=== PATIENT | male | born 1960 | race Two or more races ===

== ENCOUNTER 2016-08-10 07:30 | Emergency (ER) | payer OTHER ==
[~2016-08-10] VITALS: Ht 172.7 cm; Wt 90.7 kg
[2016-08-10] MEDS ORDERED: SODIUM CHLORIDE 0.9% 1,000 ML IV ONE (07:40)
[2016-08-10 08:02] LABS: Basophils # (auto) 0 uL; Basophils % (auto) 0.2 % (0.0-2.0); Eosinophils # (auto) 0.1 uL; Eosinophils % (auto) 1.3 % (0.0-7.0); Hematocrit 44.7 % (41.0-53.0); Hemoglobin 15.4 g/dL (13.5-17.5); Lymphocytes # (auto) 2.6 uL; Lymphocytes % (auto) 25.9 % (10.0-50.0); Mean Corpuscular Hemoglobin 30.7 pg (28.0-32.0); Mean Corpuscular Hgb Conc. 34.5 g/dL (32.0-36.0); Mean Corpuscular Volume 88.9 fL (80.0-100.0); Mean Platelet Volume 8.7 fL (7.4-10.4); Monocytes # (auto) 0.6 uL; Monocytes % (auto) 5.9 % (0.0-12.0); Neutrophils # (auto) 6.7 uL; Neutrophils % (auto) 66.7 % (37.0-80.0); Platelet Count (auto) 275 10^3/uL (140-450); Red Cell Distribution Width 13.3 % (11.6-16.0)
[2016-08-10 08:14] LABS: INR 1.03 (0.9-1.15); Partial Thromboplastin Time 23.1 sec (22.64-33.71); Prothrombin Time 10.6 sec (9.37-12.3)
[2016-08-10 08:31] LABS: Albumin 3.7 g/dL (3.4-5.0); Alkaline Phosphatase 97 U/L (45-117); Anion Gap 8 (5-15); Aspartate Aminotransferase 45 U/L (15-37); BUN/Creatinine Ratio 9.9; Bilirubin, Total 0.8 mg/dL (0.2-1.0); Blood Urea Nitrogen 12 mg/dL (7-18); Calcium 8.8 mg/dL (8.5-10.1); Carbon Dioxide 33 mmol/L (21-32); Chloride 98 mmol/L (98-107); GFR African American 79 mL/min; GFR Non-African American 66 mL/min; Glucose 137 mg/dL (74-106); Potassium 3.5 mmol/L (3.5-5.1); Sodium 139 mmol/L (136-145); Total Protein 7.5 g/dL (6.4-8.2)
[2016-08-10 08:33] LABS: B-Type Natriuretic Peptide 8.28 pg/mL (0-100)
[2016-08-10] MEDS ORDERED: LEVETIRACETAM INJ 500 MG in SODIUM CHL 0.9% 100 ML IV ONE (08:45)
[2016-08-10] MEDS ORDERED: KEP500T PO (08:52)
[2016-08-10] MEDS ORDERED: METH500T6 PO (08:55)
[2016-08-10] MEDS ORDERED: DIAZ2TAB PO (08:55)
[2016-08-10] MEDS ORDERED: HYDR-531 PO (08:55)
[2016-08-10 09:04] LABS: Urine Bilirubin Negative (Negative); Urine Blood Negative /uL (Negative); Urine Color Yellow (Yellow); Urine Glucose Normal (Normal); Urine Ketone Negative (Negative); Urine Nitrite Negative (Negative); Urine RBC 1 /hpf (0 - 3); Urine Urobilinogen Normal (Negative)
[2016-08-10 09:20] LABS: Temperature: 22.3 C (20.0-25.0)
[2016-08-10] MEDS ORDERED: HYDROcodone-ACET 10/325MG TAB PO ONE (09:45)
[2016-08-10 10:12] VITALS: BP 136/71
== END 2016-08-10 10:41 | disposition home or self-care (01) ==
LOC: EDUNIT# 07:30 → ER 07:33
DX: R42 Dizziness and giddiness (principal); R55 Syncope and collapse; R51 Headache; R06.02 Shortness of breath; Z88.1 Allergy status to other antibiotic agents; J45.909 Unspecified asthma, uncomplicated; I10 Essential (primary) hypertension; Z88.6 Allergy status to analgesic agent; Z79.899 Other long term (current) drug therapy
CPT/HCPCS: 36415; 70450; 71010; 80053; 81001; 82542; 83880; 84484; 85025; 85610; 85730; 96361; 96365; 99285; J1953; J7030